=== PATIENT | female | born 1990 ===

== ENCOUNTER 2018-01-13 12:10 | Emergency (ER) | payer OTHER ==
[2018-01-13 12:19] VITALS: PULSE 92; RESP 16; TEMP 98.4; O2SAT 100
--- NOTE | 2018-01-13 12:35 | C.PDOC ---
History Of Present Illness 27 y/o female c/o 'abscess' behind left ear that started after infection from earring; it is painful and has been increasing in size. pt has not received any medical care for this. mother sts pt felt hot yesterday. no other medical complaints. Time Seen by Provider: 01/13/18 12:21 Chief Complaint (Nursing): ENT Problem History Per: Patient, Family History/Exam Limitations: None Onset/Duration Of Symptoms: Days (4 months) Current Symptoms Are (Timing): Worse Quality (Ear): Pain W/Touch, Swelling Quality (Mouth/Throat): denies: Tenderness, Redness Symptoms Have Been: Continuous Severity: Moderate Past Medical History Reviewed: Historical Data, Nursing Documentation, Vital Signs Vital Signs: Last Vital Signs Temp 98.4 F 01/13/18 12:15 Pulse 92 H 01/13/18 12:15 Resp 16 01/13/18 12:15 BP Pulse Ox 100 01/13/18 12:48 - Medical History PMH: No Chronic Diseases Family History: States: Unknown Family Hx - Social History Hx Alcohol Use: No Hx Substance Use: No - Immunization History Hx Tetanus Toxoid Vaccination: Yes Hx Influenza Vaccination: No Hx Pneumococcal Vaccination: Yes Review Of Systems Constitutional: Positive for: Fever (tactile, yesterday). Negative for: Chills ENT: Positive for: Ear Pain. Negative for: Ear Discharge, Throat Pain Skin: Positive for: Other (growth behind left ear lobe). Negative for: Rash Neurological: Negative for: Weakness, Numbness Physical Exam - Physical Exam Appears: Non-toxic, No Acute Distress Skin: Warm, Dry Head: Atraumatic, Normacephalic Eye(s): bilateral: Normal Inspection Ear(s): Left: Other (approx 3 cm x 3 cm mass fixed to left posterior earlobe; not fluctuant, erythematous or warm. no drainage. ), Bilateral: Normal Nose: No Discharge Oral Mucosa: Moist Tongue: Normal Appearing Lips: Normal Appearing Throat: No Erythema, No Exudate Neck: Supple ED Course And Treatment O2 Sat by Pulse Oximetry: 100 Medical Decision Making Medical Decision Making: p[t with keloid behind left ear; will refer to gen sx and plastics, med clinc and accounts payable accountant service for outpt f/u. pt declines analgesic in ED. Disposition Counseled Patient/Family Regarding: Diagnosis, Need For Followup - Disposition Referrals: Levon Cordero MD [Staff Provider] - Adán Stewart MD [Staff Provider] - [facility] [Outside] [facility] [Outside] Disposition: HOME/ ROUTINE Disposition Time: 12:45 Condition: GOOD Additional Instructions: Por favor, karo un seguimiento con el cirujano general Dr Cordero, o el cirujano plstico Dr. Stewart. Es posible que necesite llamar a la clnica m dica o al servicio de conserjera para obtener ayuda para programar esta andre. [place] Tylenol para el dolor si es necesario. Please follow up with either General surgeon Dr Cordero, or plastic surgeon Dr Stewart. You may need to call medical clinic or accounts payable accountant service for assistance making this appointment. Take Tylenol for pain if needed. Instructions: Keloids Forms: [facility] (Tai[place]ese), Gen Discharge Inst [place]ese Print Language: HUNGARIAN - Clinical Impression Clinical Impression: Keloid scar
== END 2018-01-13 12:48 | disposition home or self-care (01) ==
LOC: C.ER 12:10
DX: L91.0 Hypertrophic scar (principal)